=== PATIENT | female | born 2000 | race Caucasian/White ===

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

== ENCOUNTER 2021-04-21 18:26 | Emergency (ER) | payer BC ==
[~2021-04-21] VITALS: Ht 160 cm; Wt 72.7 kg
[~2021-04-21 18:26] MED LIST changes: +BENA25CA4 PO; -BENZ0.5T PO; +BENZ0.5T23 PO
[2021-04-21] MEDS ORDERED: MICR1TAB18 (18:52)
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
[2021-04-21 22:33] VITALS: BP 126/76
== END 2021-04-21 22:35 | disposition home or self-care (01) ==
LOC: M ED 18:26
DX: S62.397A Other fracture of fifth metacarpal bone, left hand, initial encounter for closed fracture (principal); V49.49XA Driver injured in collision with other motor vehicles in traffic accident, initial encounter; Y92.410 Unspecified street and highway as the place of occurrence of the external cause; Z79.3 Long term (current) use of hormonal contraceptives

== ENCOUNTER 2021-04-22 17:08 | Emergency (ER) | payer BC, OTHER ==
[~2021-04-22] VITALS: Ht 160 cm; Wt 70.7 kg
[~2021-04-22 17:08] MED LIST changes: +MICR1TAB18
--- OUTSIDE RECORDS SUMMARY | 2021-04-22 17:17 | CCD ---
Author Author [facility] Organization [facility] Address Unknown Phone Unavailable Care Team Providers Care Supervisor Liquefaction Name Role Phone FLACO AMRTINEZ MD Unavailable Unavailable FLACO MARTINEZ MD Unavailable Unavailable FLACO MARTINEZ MD Unavailable Unavailable FLACO MARTINEZ MD Unavailable Unavailable FLACO MARTINEZ MD Unavailable Unavailable FLACO MARTINEZ MD Unavailable Unavailable FLACO MARTINEZ MD Unavailable Unavailable FLACO MARTINEZ MD Unavailable Unavailable FLACO MARTINEZ MD Unavailable Unavailable FLACO MARTINEZ MD Unavailable Unavailable FLACO MARTINEZ MD Unavailable Unavailable FLACO MARTINEZ MD Unavailable Unavailable FLACO MARTINEZ MD Unavailable Unavailable EGORHO, @RH LISETTE Unavailable Unavailable FLACO MARTINEZ Unavailable Unavailable EGORHO, F LISETTE FPMHNP Unavailable Unavailable EGORHO, F LISETTE FPMHNP Unavailable Unavailable EGORHO, F LISETTE FPMHNP Unavailable Unavailable EGORHO, F LISETTE FPMHNP Unavailable Unavailable EGORHO, F LISETTE FPMHNP Unavailable Unavailable EGORHO, F LISETTE FPMHNP Unavailable Unavailable EGORHO, F LISETTE FPMHNP Unavailable Unavailable EGORHO, F LISETTE FPMHNP Unavailable Unavailable EGORHO, F LISETTE FPMHNP Unavailable Unavailable Re-disclosure Warning The records that you are about to access may contain information from federally-assisted alcohol or drug abuse programs. If such information is present, then the following federally mandated warning applies: This information has been disclosed to you from records protected by federal confidentiality rules (42 CFR part 2). The federal rules prohibit you from making any further disclosure of this information unless further disclosure is expressly permitted by the written consent of the person to whom it pertains or as otherwise permitted by 42 CFR part 2. A general authorization for the release of medical or other information is NOT sufficient for this purpose. The Federal rules restrict any use of the information to criminally investigate or prosecute any alcohol or drug abuse patient.The records that you are about to access may contain highly sensitive health information, the redisclosure of which is protected by Article 27-F of the [facility] Public Health law. If you continue you may have access to information: Regarding HIV / AIDS; Provided by facilities licensed or operated by the [facility] Office of Mental Health; or Provided by the [facility] Office for People With Developmental Disabilities. If such information is present, then the following [facility] mandated warning applies: This information has been disclosed to you from confidential records which are protected by state law. State law prohibits you from making any further disclosure of this information without the specific written consent of the person to whom it pertains, or as otherwise permitted by law. Any unauthorized further disclosure in violation of state law may result in a fine or long-term sentence or both. A general authorization for the release of medical or other information is NOT sufficient authorization for further disc losure. Encounters Encounter Providers Location Date Indications Data Source(s ) Outpatient Attender: LISETTE SAULNP 03/17/2021 04:30: 00 PM [facility] Outpatient Attender: LISETTE DONNELLY [facility] 11/26/2020 11:30: 00 AM [facility] Outpatient Attender: LISETTE NARENOAttender: LISETTE ANDRZEJ FPM HNP 09/19/2020 05:00:00 PM [facility] Outpatient Attender: FLACO MARTINEZ MDAttender: FLACO MARTINEZ 06/17/2020 08:04:00 AM [facility] Outpatient Attender: FLACO MARTINEZ 02/26/2020 03:30:00 PM [facility] Outpatient Attender: FLACO MARTINEZ 11/27/2019 11:30:00 AM [facility] Outpatient Attender: FLACO MARTINEZ 10/09/2019 02:30:00 PM [facility] Immunizations Vaccine Date Status Description Data Source(s) COVID-19 VACCINE Moderna 10/23/2020 12:00:00 AM EDT completed [facility] Vaccine Series Complete: YESThis Data wa s Submitted to [facility] Via [employer]. COVID-19 VACCINE Moderna 09/24/2020 12:00:00 AM EDT completed [facility] Vaccine Series Complete: NOThis Data was Submitted to [facility] Via [employer]. Medications Medication Brand Name Start Date Product Form Dose Route Admi nistrative Instructions Pharmacy Instructions Status Indications Reaction Description Data Source(s) 1.5-30 mg-mcg 07/12/2020 12:00:00 AM EST tablet 84 TAKE ONE TABLET BY MOUTH EVERY DAY TAKE ONE TABLET BY MOUTH EVERY DAY SOLD: 07/22/2020 [facility] MICROGESTIN 1.5/30 21 Day Pack 1.5-30 mg-mcg NORETHINDRONE A C-ETH ESTRADIOL 07/12/2020 12:00:00 AM EST tablet 84 TAKE ONE TABLE T BY MOUTH EVERY DAY TAKE ONE TABLET BY MOUTH EVERY DAY SOLD: 11/06/2020 [facility] 1.5-30 mg-mcg 07/12/2020 12:00:00 AM EST tablet 84 TAKE ONE TABLET BY MOUTH EVERY DAY TAKE ONE TABLET BY MOUTH EVERY DAY SOLD: 02/27/2021 [facility] 1.5-30 mg-mcg 06/11/2020 12:00:00 AM EST tablet 21 TAKE ONE TABLET BY MOUTH EVERY DAY TAKE ONE TABLET BY MOUTH EVERY DAY SOLD: 06/24/2020 [facility] 150 mg 03/25/2020 12:00:00 AM EDT capsule,extended releas e 24hr 60 TAKE TWO CAPSULES BY MOUTH EVERY DAY TAKE TWO CAPSULES BY MOUTH EVERY DAY SOLD: 03/27/2020 [facility] 150 mg 03/25/2020 12:00:00 AM EDT capsule,extended releas e 24hr 60 TAKE TWO CAPSULES BY MOUTH EVERY DAY TAKE TWO CAPSULES BY MOUTH EVERY DAY SOLD: 04/26/2020 [facility] Insurance Providers Payer name Policy type / Coverage type Policy ID Covered democrat ID Covered democrat's relationship to lamar Policy Lamar Plan Information [place] [id number] SP [id number] [place] 306/806 [id number] MO2 [id number] CDPHP [id number] CHILD [id number] CDPHP [id number] CHILD [id number] [place]BS [place] [id number] CHILD ZWP [id number] [place] [id number] CHILD ZWP [id number] ANSI-Commercial [id number] ANSI-Commercial [id number] ANSI-Commercial [id number] [place] [id number] SP [id number] ANSI-Commercial [id number] MEDICAID [id number] SP [id number] [place] 306/806 [id number] SP [id number] [place] [id number] SP [id number] SELF PAY UNAVAILABLE SP UNAVAILA BLE Problems, Conditions, and Diagnoses Code Display Name Description Problem Type Effective Dates Data Source(s) F39 Unspecified mood [affective] disorder UNSPECIFIE D MOOD [AFFECTIVE] DISORDER Diagnosis 03/17/2021 04:30:00 PM [facility] F12.20 Cannabis dependence, uncomplicated CANNABIS DEPE NDENCE, UNCOMPLICATED Diagnosis 09/19/2020 05:00:00 PM [facility] Surgeries/Procedures No Information Results No Information Social History No Information
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
[2021-04-22 19:49] VITALS: BP 128/74
== END 2021-04-22 19:52 | disposition home or self-care (01) ==
LOC: M ED 17:08
DX: Z04.1 Encounter for examination and observation following transport accident (principal); R22.41 Localized swelling, mass and lump, right lower limb; Z79.899 Other long term (current) drug therapy; Z79.3 Long term (current) use of hormonal contraceptives

== ENCOUNTER 2022-01-01 14:22 | Emergency (ER) | payer OTHER ==
[~2022-01-01] VITALS: Ht 160 cm; Wt 70.9 kg
[~2022-01-01 14:22] MED LIST changes: -MICR1TAB18; +NORE1TAB94
[2022-01-01 14:23] VITALS: BP 122/78
[2022-01-01] MEDS ORDERED: VENL150C43 PO ×2 (14:35)
[2022-01-01] MEDS ORDERED: EFFE150C2 PO (15:58)
== END 2022-01-01 16:05 | disposition home or self-care (01) ==
LOC: M ED 14:22
DX: Z76.0 Encounter for issue of repeat prescription (principal); F19.230 Other psychoactive substance dependence with withdrawal, uncomplicated; R51.9 Headache, unspecified; R11.0 Nausea; F41.9 Anxiety disorder, unspecified; F17.210 Nicotine dependence, cigarettes, uncomplicated; Z79.899 Other long term (current) drug therapy